=== PATIENT | female | born 1980 ===

== ENCOUNTER 2020-05-08 14:22 | Emergency (ER) | payer MEDICAID, OTHER ==
[~2020-05-08] VITALS: Ht 152.4 cm; Wt 129.3 kg
[2020-05-08 14:38] VITALS: BP 127/84
--- NOTE | 2020-05-08 16:20 | NUR ---
PT C/O SOB AND COUGHING WITH ALL OVER BODY ACHES TIMES 1 WEEK. PT ALSO HAS A HEADACHE FROM THE FREQUENT COUGHING. PT STATES SHE DOESNT THINK SHE HAS HAD A FEVER, BUT UNUSRE MEDICATION SHE IS TAKING FOR COUGH HAS TYLENOL.
[2020-05-08] MEDS ORDERED: DEXAMETHASONE 4 MG TABLET PO ONE (17:00)
[2020-05-08] MEDS ORDERED: DEXAMETHASONE 4 MG TABLET ONE (17:01)
--- NOTE | 2020-05-08 17:06 | NUR ---
PT REC'VD DISCHARGE INSTRUCTIONS AND EDUCATION. PT HAD NO FURTHER QUESTIONS.
--- NOTE | 2020-05-08 17:25 | NUR ---
PT AMBULATED TO NE AREA, STEADY GAIT.
== END 2020-05-08 17:45 | disposition home or self-care (01) ==
LOC: ED 17:39
DX: U07.1 COVID-19 (principal); R00.0 Tachycardia, unspecified; R06.02 Shortness of breath; M79.10 Myalgia, unspecified site; J45.901 Unspecified asthma with (acute) exacerbation
CPT/HCPCS: 71045; 87635; 93005; 99285